=== PATIENT | female | born 1970 | race Caucasian/White ===

== ENCOUNTER 2016-12-02 13:00 | Emergency (ER) | payer SELFPAY ==
[~2016-12-02] VITALS: Ht 160 cm; Wt 110.5 kg
[2016-12-02 13:14] VITALS: Ht 160 cm; Wt 110.5 kg
== END 2016-12-02 23:34 | disposition left against medical advice (07) ==
LOC: E/R 13:00
DX: Z53.21 Procedure and treatment not carried out due to patient leaving prior to being seen by health care provider (principal)